=== PATIENT | female | born 1965 | race Caucasian/White ===

== ENCOUNTER 2017-11-23 09:05 | Day surgery (SDC) | payer OTHER ==
[~2017-11-23 09:05] MED LIST: KEPPRA1000 MG PO; LAMISIL250 MG PO; LIPITOR20 MG PO
== END 2017-11-23 14:50 | disposition home or self-care (01) ==
LOC: AMB-ENDOS 09:05
DX: N80.5 Endometriosis of intestine (principal); K56.51 Intestinal adhesions [bands], with partial obstruction; Z12.11 Encounter for screening for malignant neoplasm of colon